=== PATIENT | male | born 1940 | race Caucasian/White ===

== ENCOUNTER → 2016-08-30 | Outpatient (CLI) | payer MEDICARE, OTHER ==
[~2016-08-30] MED LIST: ASPIR 8181 MG PO; ATIVAN 1MG TABLE1 MG PO; COZAAR100 MG PO; DITROPAN 5 MG TA5 MG PO; GLUCOPHAGE500 MG PO; GLUCOTROL5 MG PO; NEURONTIN 300300 MG PO; NORCO 7.5-3251 EACH PO; OMEPRAZOLE20 MG PO; PLAVIX 75 MG TA75 MG PO; PRAVASTATIN SOD20 MG PO; XARELTO10 MG PO
[2016-08-30 12:11] LABS: HEMOGLOBIN 14.6 gm/dl (14.0-17.5); RED BLOOD COUNT 4.79 M/UL (4.20-5.50); WHITE BLOOD COUNT 5.5 K/UL (4.5-11.0)
[2016-08-30 12:19] LABS: BUN/CREATININE RATIO 16 (0-10)
== END ==
LOC: OPSV2 10:25 → EDSTATUS 11:00
PROVIDERS: Orthopaedic Surgery
DX: Z01.810 Encounter for preprocedural cardiovascular examination (principal); Z01.812 Encounter for preprocedural laboratory examination; Z01.818 Encounter for other preprocedural examination; M16.12 Unilateral primary osteoarthritis, left hip; M87.9 Osteonecrosis, unspecified; I10 Essential (primary) hypertension; E11.9 Type 2 diabetes mellitus without complications; I25.10 Atherosclerotic heart disease of native coronary artery without angina pectoris
CPT/HCPCS: 36415; 71020; 80048; 83036; 85025; 87081; 93005

== ENCOUNTER 2016-09-11 05:55 | Inpatient (IN) | payer MEDICARE, OTHER ==
[~2016-09-11] VITALS: Ht 167.6 cm; Wt 93.0 kg
[2016-09-11] MEDS ORDERED: COZAAR100 MG PO (06:53)
[2016-09-11] MEDS ORDERED: NEURONTIN 300300 MG PO (06:53)
[2016-09-11] MEDS ORDERED: GLUCOPHAGE500 MG PO (06:54)
[2016-09-11] MEDS ORDERED: NORCO 7.5-3251 EACH PO (06:55)
[2016-09-11] MEDS ORDERED: OMEPRAZOLE20 MG PO (06:55)
[2016-09-11] MEDS ORDERED: ATIVAN 1MG TABLE1 MG PO (06:55)
[2016-09-11] MEDS ORDERED: DITROPAN 5 MG TA5 MG PO (06:56)
[2016-09-11] MEDS ORDERED: PRAVASTATIN SOD20 MG PO (06:56)
[2016-09-11] MEDS ORDERED: GLUCOTROL5 MG PO (06:57)
[2016-09-11] MEDS ORDERED: PLAVIX 75 MG TA75 MG PO (06:58)
[2016-09-11] MEDS ORDERED: ASPIR 8181 MG PO (06:58)
[2016-09-11 12:07] LABS: HEMOGLOBIN 11.9 gm/dl (14.0-17.5)
[2016-09-12 04:40] LABS: HEMOGLOBIN 11.2 gm/dl (14.0-17.5); RED BLOOD COUNT 3.74 M/UL (4.20-5.50); WHITE BLOOD COUNT 6.7 K/UL (4.5-11.0)
[2016-09-12 05:14] LABS: BUN/CREATININE RATIO 14 (0-10)
[2016-09-13 06:19] LABS: HEMOGLOBIN 12.1 gm/dl (14.0-17.5); RED BLOOD COUNT 3.99 M/UL (4.20-5.50)
[2016-09-13 06:25] LABS: WHITE BLOOD COUNT 8.9 K/UL (4.5-11.0)
[2016-09-13 06:37] LABS: BUN/CREATININE RATIO 13 (0-10)
[2016-09-13] MEDS ORDERED: XARELTO10 MG PO (09:27)
== END 2016-09-13 12:27 | disposition home health service (06) | DRG 470 ==
LOC: ZOBSOF 05:55 → M/S 13:22
PROVIDERS: ADMIT Orthopaedic Surgery
PROC: 3E0T3CZ (ICD-10-PCS; 2016-09-11)
PROC: 0SRB02A Replacement of Left Hip Joint with Metal on Polyethylene Synthetic Substitute, Uncemented, Open Approach (ICD-10-PCS; principal; 2016-09-11 08:45)
DX: M16.12 Unilateral primary osteoarthritis, left hip (principal); M87.852 Other osteonecrosis, left femur; D62 Acute posthemorrhagic anemia; F11.20 Opioid dependence, uncomplicated; I10 Essential (primary) hypertension; E11.9 Type 2 diabetes mellitus without complications; E78.5 Hyperlipidemia, unspecified; I25.10 Atherosclerotic heart disease of native coronary artery without angina pectoris; K21.0 Gastro-esophageal reflux disease with esophagitis; G47.33 Obstructive sleep apnea (adult) (pediatric); G89.29 Other chronic pain; M54.9 Dorsalgia, unspecified; M25.752 Osteophyte, left hip; K59.00 Constipation, unspecified; F32.9 Major depressive disorder, single episode, unspecified; F41.9 Anxiety disorder, unspecified; Z95.5 Presence of coronary angioplasty implant and graft; Z86.718 Personal history of other venous thrombosis and embolism; Z86.73 Personal history of transient ischemic attack (TIA), and cerebral infarction without residual deficits; Z79.02 Long term (current) use of antithrombotics/antiplatelets; Z79.82 Long term (current) use of aspirin; Z79.84 Long term (current) use of oral hypoglycemic drugs; Z79.899 Other long term (current) drug therapy; Z96.641 Presence of right artificial hip joint; Z98.890 Other specified postprocedural states; Z82.49 Family history of ischemic heart disease and other diseases of the circulatory system; Z83.3 Family history of diabetes mellitus; Z82.3 Family history of stroke; Z80.9 Family history of malignant neoplasm, unspecified
CPT/HCPCS: 36415; 72170; 76000; 80048; 82962; 83735; 85014; 85018; 85025; 86850; 86900; 86901; 97110; 97116; 97530; C1776; J0171; J0690; J2250; J2270; J2795; J3010; J3370; J7030; J7050; J7120